=== PATIENT | female | born 1970 | race Caucasian/White ===

== ENCOUNTER 2024-10-17 10:02 | Outpatient (AMB) | payer OTHER, SELFPAY ==
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
[2024-10-17 10:31] VITALS: BP 100/60; PULSE 78; RESP 18; TEMP 36.9; O2SAT 97; BMI 32.8
== END 2024-10-17 12:12 | disposition home or self-care (01) ==
PROVIDERS: Visit Provider Internal Medicine
DX: M51.26 Other intervertebral disc displacement, lumbar region (principal); Z00.00 Encounter for general adult medical examination without abnormal findings; Z53.20 Procedure and treatment not carried out because of patient's decision for unspecified reasons; Z12.4 Encounter for screening for malignant neoplasm of cervix; R40.20 Unspecified coma

== ENCOUNTER 2024-10-17 10:02 | Outpatient (REF) | payer OTHER, SELFPAY ==
[2024-10-23 14:40] LABS: HPV Genotype 16 Negative (Negative); HPV Genotype 18 Negative (Negative); HPV High Risk Negative (Negative)
== END 2024-10-17 10:03 | disposition home or self-care (01) ==
LOC: HO.LNP 10:02
PROVIDERS: Visit Provider Internal Medicine
DX: Z00.00 Encounter for general adult medical examination without abnormal findings (principal); Z12.4 Encounter for screening for malignant neoplasm of cervix; M51.26 Other intervertebral disc displacement, lumbar region; R55 Syncope and collapse
CPT/HCPCS: 87626; 88175; 96127; 99386; 99459

== ENCOUNTER 2024-12-19 09:47 | Outpatient (REF) | payer OTHER, SELFPAY ==
[2024-12-19 13:28] LABS: MANUAL DIFF FLAG NO
[2024-12-19 13:43] LABS: Basophils Percent Auto 0.4 % (0-2); Eosinophils Absolute Auto 0.1 X10*3/uL (0.0-0.4); Eosinophils Percent Auto 1.1 % (0-4); Hematocrit 38.6 % (37.0-47.0); Hemoglobin 12.4 g/dl (12.0-16.0); Imm Gran Abs Auto 0.01 X10*3/uL (0.00-0.03); Imm Gran Pct Auto 0.1 % (0.0-0.4); Lymphocytes Absolute Auto 2.5 X10*3/uL (1.2-4.9); Lymphocytes Percent Auto 35.9 % (20-40); Mean Corpuscular HGB Conc 32.1 g/dl (31.0-35.0); Mean Corpuscular Hemoglobin 29.9 pg (27.0-33.0); Mean Platelet Volume 10.1 fL (9.4-12.3); Monocytes Absolute Auto 0.6 X10*3/uL (0.1-1.2); Neutrophils Absolute Auto 3.8 x10*3/uL (2.0-8.3); Neutrophils Percent Auto 54.5 % (45-73); Platelet Count 282 X10*3/uL (160-400); Red Blood Count 4.15 X10*6/uL (4.20-5.50)
[2024-12-19 13:46] LABS: Estimated Average Glucose 105 mg/dL; Hemoglobin A1C 111.0018 umol/L; Hemoglobin A1c % 5.3 % (<6.0); Total Hemoglobin (HGBA1C) 3199.4339 umol/L
[2024-12-19 13:54] LABS: Appearance Urine Clear; Color Urine Yellow; Glucose Urine UA Negative (Negative); Leukocyte Esterase Urine Negative (Negative); Nitrite Urine Negative (Negative); Specific Gravity - Urine <= 1.005 (1.005-1.025); Urine Blood Negative (Negative); Urine Ketones Negative (Negative); Urine Protein Negative (Neg-Trace)
[2024-12-19 13:56] LABS: Bacteria Urine None Seen (None Seen); Hyaline Casts Urine 0-2 /LPF (0-2); RBC Urine 0-2 /HPF (0-2); Squamous Epithelial Cell Urine 0-2 /HPF (0-2); WBC Urine 0-5 /HPF (0-5)
[2024-12-19 14:23] LABS: Alanine Aminotransferase 42 U/L (0-31); Albumin Level 4.2 g/dL (3.5-5.0); Alkaline Phosphatase 113 U/L (39-117); Anion Gap 11 (12-20); Aspartate Amino Transferase 29 U/L (5-31); Bilirubin Total 0.4 mg/dL (0.0-1.0); Blood Urea Nitrogen 15 mg/dL (9-16); Calcium 8.9 mg/dL (8.4-10.2); Carbon Dioxide 25 mmol/L (22-29); Chloride 111 mmol/L (96-108); Cholesterol 262 mg/dL (<200); Estimated Glomerular Filt Rate > 60; Glucose Fasting 89 mg/dL (60-99); HDL Cholesterol 52 mg/dL (>40); Iron 71 mcg/dL (30-160); LDL Cholesterol Calculated 179 mg/dL (<100); Percent Iron Saturation 24 % (15-50); Potassium 4.7 mmol/L (3.3-5.1); Sodium 142 mmol/L (135-145); TSH reflex Free T4 0.43 uIU/mL (0.32-4.0); Total Iron Binding Capacity 295 mcg/dL (228-428); Total Protein 6.8 g/dL (6.5-8.0); Triglycerides 157 mg/dL (<150); Unsaturated Iron Binding 224 ug/dL; Vitamin D 25-OH Total 21.5 ng/mL (>30)
[2024-12-19 14:41] LABS: Folate 12.3 ng/mL (> or = 4.0); Vitamin B12 285 pg/mL (200-900)
== END 2024-12-19 09:48 | disposition home or self-care (01) ==
LOC: HO.HMGCLDS 09:47
PROVIDERS: PCP Internal Medicine; Visit Provider Internal Medicine
DX: R87.619 Unspecified abnormal cytological findings in specimens from cervix uteri (principal); Z00.00 Encounter for general adult medical examination without abnormal findings; E78.5 Hyperlipidemia, unspecified; R73.9 Hyperglycemia, unspecified; M51.26 Other intervertebral disc displacement, lumbar region; E66.3 Overweight
CPT/HCPCS: 36415; 80053; 80061; 81001; 82306; 82607; 82746; 83036; 83540; 84443; 85025; 99212

== ENCOUNTER 2024-12-19 09:47 | Outpatient (AMB) | payer OTHER, SELFPAY ==
[2024-12-19 10:08] VITALS: BP 100/62; PULSE 74; RESP 18; TEMP 36.6; O2SAT 97; BMI 33.2
--- NOTE | 2024-12-19 10:08 | A.OFFPC_ITS ---
Vital Signs 12/19/24 10:08 Height 5 ft Weight 170 lb BMI 33.2 BP 100/62 Blood Pressure Location Rt brachial Position Sitting Respiration 18 Pulse 74 Pulse Source Pulse Oximeter Temp 97.9 F Temp Source Oral Pulse Oximetry (%) 97 Oxygen Delivery Method Room Air Intake Visit Reasons: 2m f/u Intake Note: Pt is here today for 2 months follow up visit. Allergies No Known Allergies Allergy (Verified 10/17/24 10:32) Medication List - Last Reconciled 12/19/24 by Roxann Govea MD No Known Home Meds Tobacco use date assessed: 12/19/24 Dental Screening Dental Screen Date: 10/17/24 HPI 2m f/u HPI Details Pt presents for f/u. She complains of frequent urination for 2 years and gaining weight since menopause. Pt has been in PT for neck pain and c/o chronic back pain and stiffness when starting to walk. PFSH Surgical History (Updated 10/17/24 @ 15:31 by Roxann Govea MD) Hx of plastic surgery Hx of appendectomy Family History (Updated 10/17/24 @ 10:36 by Alicia Le [facility]) Father Hypertension Mother Hypertension Social History (Updated 10/17/24 @ 15:33 by Roxann Govea MD) Household Members Other:: , 3 daughters (27, 18, 10) , stays home, from [facility] Housing: House Patient Tobacco Use Status: Never used Tobacco e-Cigarette/Vaping Use: Never Used service: No Current occupational status: unemployed Cognitive needs: No Hearing needs: No Vision needs: Yes Questionnaire Thrive Questionnaire Date Thrive assessed: 10/15/24 I am a: Patient What is your living situation today?: I have a steady place to live Within the past 12 months, did the food you bought not last and you didn't have the money to get more?: I choose not to answer this question Within the past 12 months, did you worry whether your food would run out before you got money to buy more?: I choose not to answer this question Do you have trouble paying for medicines?: I choose not to answer this question Do you have trouble getting transportation to medical appointments?: No Do you have trouble paying your heating and electricity bill?: I choose not to answer this question Do you have trouble taking care of your child, family member or friend?: No Do you have trouble with day-to-day activities such as bathing, preparing meals, shopping, managing finances, etc.?: I choose not to answer this question Are you currently unemployed and looking for a job?: Yes Are you interested in more education?: Yes Please select the resources that you would like help with: None Currently or been in a relationship where the following occur: I choose not to answer THRIVE Score: 0 RAINA-7 AMB Questionnaire RAINA-7 Date RAINA - 7 assessed: 10/17/24 Source: Developed by Drs. Neto Guillermo, Krista Aiken, Jimbo Medina and colleagues, with an educational vanessa from [employer]. Review of Systems Const All systems reviewed & are unremarkable except as noted in HPI and below Eyes Reports no additional complaints ENT Reports no additional complaints Card Reports no additional complaints Resp Reports no additional complaints GI Reports no additional complaints Reports no additional complaints Physical exam (Primary Care) Vital Signs: Last Vital Signs Temp 97.9 F 12/19/24 10:08 Pulse 74 12/19/24 10:08 Resp 18 12/19/24 10:08 BP 100/62 12/19/24 10:08 Pulse Ox 97 12/19/24 10:08 Oxygen Delivery Method Room Air 12/19/24 10:08 BMI result Body Mass Index 33.2 Tobacco/Smoking Status: Tobacco use Status Tobacco use date assessed 12/19/24 12/19/24 10:13 Patient Tobacco Use Status Never used Tobacco 12/19/24 10:09 e-Cigarette/Vaping Use Never Used 12/19/24 10:09 Thrive Assessment: Date of Thrive Assessment Date Thrive assessed 10/15/24 12/19/24 10:09 Currently or been in a relationship where the following occur: I choose not to answer Const General: no acute distress HENMT Head: Yes normal to inspection Ears: hearing grossly normal bilaterally Face and sinus: Yes normal facial exam Mouth: Normal oral and palatal mucosa present Eyes General: appearance normal, both eyes and all related structures Neck Neck: Yes no lymphadenopathy and Yes supple Resp Effort & Inspection: normal respiratory effort Auscultation: clear to auscultation bilaterally Cardio Rhythm: regular rhythm Heart sounds: S1 normal heart sound present and S2 normal heart sound present GI Inspection: Yes normal to inspection Palpation (GI): Soft to palpation Percussion: Yes normal to percussion Auscultation: normal bowel sounds Coding Level of Care Code Est Pt Level 4 (30973) Diagnoses Abnormal Pap smear of cervix R87.619 Herniated intervertebral disc of lumbar spine M51.26 Hyperlipidemia E78.5 Overweight E66.3 Assessment & Plan Assessment & Plan (1) Abnormal Pap smear of cervix: Comment: MARCE 1 referral Code(s): R87.619 - Unspecified abnormal cytological findings in specimens from cervix uteri Category: Medical Plan: refer to psychology tech, 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 (2) Herniated intervertebral disc of lumbar spine: Comment: Chronic lower back pain and sciatica Code(s): M51.26 - Other intervertebral disc displacement, lumbar region Category: Medical Plan: refer to PT (3) Hyperlipidemia: Comment: Diet Code(s): E78.5 - Hyperlipidemia, unspecified Category: Medical Plan: cont low cholesterol diet check lipid profile (4) Overweight: Code(s): E66.3 - Overweight Category: Medical Plan: check TSH, decrease caloric intake, increase exercise Orders: Orders PT Evaluation and Treatment Today M51.26 - Other intervertebral disc displacement, lumbar region Comprehensive [place]. Panel Fast Today E78.5 - Hyperlipidemia, unspecified, R73.9 - Hyperglycemia, unspecified, Z00.00 - Encounter for general adult medical examination without abnormal findings Complete Blood Count Auto Diff Today E78.5 - Hyperlipidemia, unspecified, R73.9 - Hyperglycemia, unspecified, Z00.00 - Encounter for general adult medical examination without abnormal findings IRON PROFILE Today E78.5 - Hyperlipidemia, unspecified, R73.9 - Hyperglycemia, unspecified, Z00.00 - Encounter for general adult medical examination without abnormal findings UA w Microscopic Today E78.5 - Hyperlipidemia, unspecified, R73.9 - Hyperglycemia, unspecified, Z00.00 - Encounter for general adult medical examination without abnormal findings TSH reflex Free T4 Today E78.5 - Hyperlipidemia, unspecified, R73.9 - Hyperglycemia, unspecified, Z00.00 - Encounter for general adult medical examination without abnormal findings Hemoglobin A1c Today E78.5 - Hyperlipidemia, unspecified, R73.9 - Hyperglycemia, unspecified, Z00.00 - Encounter for general adult medical examination without abnormal findings Vitamin B12 and Folate Today E78.5 - Hyperlipidemia, unspecified, R73.9 - Hyperglycemia, unspecified, Z00.00 - Encounter for general adult medical examination without abnormal findings Vitamin D 25-OH Total Today E78.5 - Hyperlipidemia, unspecified, R73.9 - Hyperglycemia, unspecified, Z00.00 - Encounter for general adult medical examination without abnormal findings Lipid Panel Today E78.5 - Hyperlipidemia, unspecified, R73.9 - Hyperglycemia, unspecified, Z00.00 - Encounter for general adult medical examination without abnormal findings Referrals GRANTS ANALYST Referral R87.619 - Unspecified abnormal cytological findings in specimens from cervix uteri
== END 2024-12-19 12:21 | disposition home or self-care (01) ==
LOC: HO.HMCC 09:47
PROVIDERS: PCP Internal Medicine; Visit Provider Internal Medicine
DX: R87.619 Unspecified abnormal cytological findings in specimens from cervix uteri (principal); M51.26 Other intervertebral disc displacement, lumbar region; E78.5 Hyperlipidemia, unspecified; E66.3 Overweight

== ENCOUNTER 2025-02-23 09:06 | Outpatient (AMB) | payer OTHER, SELFPAY ==
[2025-02-23 09:30] VITALS: BP 110/76; PULSE 77; RESP 18; TEMP 36.8; O2SAT 99; BMI 33.2
--- NOTE | 2025-02-23 09:30 | A.OFFPC_ITS ---
Vital Signs 02/23/25 09:30 Height 5 ft Weight 170 lb BMI 33.2 BP 110/76 Blood Pressure Location Lt brachial Position Sitting Respiration 18 Pulse 77 Pulse Source Pulse Oximeter Temp 98.2 F Temp Source Oral Pulse Oximetry (%) 99 Oxygen Delivery Method Room Air Intake Visit Reasons: HEMOROIDS Intake Note: Pt is here today for a sick visit. Pt c/o issues with hemorrhoids for couple months now. Allergies No Known Allergies Allergy (Verified 02/23/25 09:43) Medication List - Last Reconciled 02/23/25 by Roxann Govea MD No Known Home Meds Tobacco use date assessed: 02/23/25 Dental Screening Dental Screen Date: 10/17/24 HPI HEMOROIDS HPI Details Patient presents complaining of external hemorrhoids swelling and bleeding 2 weeks ago. Patient use [id number] hemorrhoid cream and his symptoms resolved. She reports chronic constipation but denies hematochezia melena. Patient reports intermittent right upper quadrant abdominal discomfort and flank pain on and off. Patient denies hematuria or dysuria. She has bilateral breast implants and would like to have breast ultrasound but refused to have a mammogram. Patient is planning to have breast implants removed in [place] in April. [facility] Medical History Abdominal pain Hemorrhoid Rectal bleed Hyperlipidemia Surgical History Hx of plastic surgery Hx of appendectomy Family History Father Hypertension Mother Hypertension Social History Household Members Other:: , 3 daughters (27, 18, 10) , stays home, from [facility] Housing: House Patient Tobacco Use Status: Never used Tobacco e-Cigarette/Vaping Use: Never Used service: No Current occupational status: unemployed Cognitive needs: No Hearing needs: No Vision needs: Yes Questionnaire Thrive Questionnaire Date Thrive assessed: 10/15/24 I am a: Patient What is your living situation today?: I have a steady place to live Within the past 12 months, did the food you bought not last and you didn't have the money to get more?: I choose not to answer this question Within the past 12 months, did you worry whether your food would run out before you got money to buy more?: I choose not to answer this question Do you have trouble paying for medicines?: I choose not to answer this question Do you have trouble getting transportation to medical appointments?: No Do you have trouble paying your heating and electricity bill?: I choose not to answer this question Do you have trouble taking care of your child, family member or friend?: No Do you have trouble with day-to-day activities such as bathing, preparing meals, shopping, managing finances, etc.?: I choose not to answer this question Are you currently unemployed and looking for a job?: Yes Are you interested in more education?: Yes Please select the resources that you would like help with: None Currently or been in a relationship where the following occur: I choose not to answer THRIVE Score: 0 RAINA-7 AMB Questionnaire RAINA-7 Date RAINA - 7 assessed: 10/17/24 Source: Developed by Drs. Neto Guillermo, Krista Aiken, Jimbo Medina and colleagues, with an educational vanessa from [employer]. Review of Systems Const All systems reviewed & are unremarkable except as noted in HPI and below Card Reports no additional complaints Resp Reports no additional complaints GI Reports no additional complaints Reports no additional complaints Physical exam (Primary Care) Vital Signs: Last Vital Signs Temp 98.2 F 02/23/25 09:30 Pulse 77 02/23/25 09:30 Resp 18 02/23/25 09:30 BP 110/76 02/23/25 09:30 Pulse Ox 99 02/23/25 09:30 Oxygen Delivery Method Room Air 02/23/25 09:30 BMI result Body Mass Index 33.2 Tobacco/Smoking Status: Tobacco use Status Tobacco use date assessed 02/23/25 02/23/25 09:45 Patient Tobacco Use Status Never used Tobacco 02/23/25 09:30 e-Cigarette/Vaping Use Never Used 02/23/25 09:30 Thrive Assessment: Date of Thrive Assessment Date Thrive assessed 10/15/24 02/23/25 09:30 Currently or been in a relationship where the following occur: I choose not to answer Const General: no acute distress HENMT Face and sinus: Yes normal facial exam Eyes General: appearance normal, both eyes and all related structures Resp Effort & Inspection: normal respiratory effort Auscultation: clear to auscultation bilaterally Cardio Rhythm: regular rhythm Heart sounds: S1 normal heart sound present and S2 normal heart sound present GI Inspection: Yes normal to inspection Palpation (GI): Soft to palpation Percussion: Yes normal to percussion Auscultation: normal bowel sounds Coding Level of Care Code Est Pt Level 4 (55521) Diagnoses Rectal bleed K62.5 Hemorrhoid K64.9 Breast implant in situ Abdominal pain R10.9 Assessment & Plan Assessment & Plan (1) Rectal bleed: Code(s): K62.5 - Hemorrhage of anus and rectum Category: Medical Plan: refer for colonoscopy (2) Hemorrhoid: Code(s): K64.9 - Unspecified hemorrhoids Category: Medical Plan: Try Proctocream, for chronic constipation patient was advised to increase fiber and fluids intake, try Metamucil and MiraLax as needed (3) Breast implant in situ: Code(s): - Breast implant status Category: Medical Plan: Obtain bilateral breast ultrasound, patient declined mammogram. (4) Abdominal pain: Code(s): R10.9 - Unspecified abdominal pain Category: Medical Plan: Obtain abdominal ultrasound to evaluate for cholelithiasis and nephrolithiasis Orders: Orders US breast RT complete Today - Breast implant status HIV Ab/Ag Today R05.9 - Cough, unspecified, R10.9 - Unspecified abdominal pain US breast LT complete Today - Breast implant status XR chest 1V Today R05.9 - Cough, unspecified Hepatitis B,C Profile Today R05.9 - Cough, unspecified, R10.9 - Unspecified abdominal pain US abdomen complete Today R10.9 - Unspecified abdominal pain Referrals Gastroenterology Referral K62.5 - Hemorrhage of anus and rectum, K64.9 - Unspecified hemorrhoids
== END 2025-02-23 11:41 | disposition home or self-care (01) ==
LOC: HO.HMCC 09:07
PROVIDERS: PCP Internal Medicine; Visit Provider Internal Medicine
DX: K62.5 Hemorrhage of anus and rectum (principal); K64.9 Unspecified hemorrhoids; Z98.82 Breast implant status; R10.9 Unspecified abdominal pain

== ENCOUNTER 2025-02-23 09:06 | Outpatient (REF) | payer OTHER, SELFPAY ==
--- NOTE | ~2025-02-23 | XR_ITS ---
EXAMINATION: XR CHEST CLINICAL INFORMATION: R05.9 - Cough, unspecified COMPARISON: None available. TECHNIQUE: Frontal view of the chest was obtained. FINDINGS: No consolidation, pleural fissure pneumothorax. Cardiomediastinal silhouette size is normal. Small marginal osteophyte formation and syndesmophyte formation lower thoracic spine. XR/XR chest 1V IMPRESSION: No acute airspace disease. Electronically signed by: Karel Weller MD 02/23/2025 11:08 AM EDT
[2025-02-23 13:59] LABS: HBc Num1 9.04 S/CO (0.00-0.79); HBsAGNum1 0.31 S/CO (0.00-0.99); HIV AB/AG Nonreactive (Nonreactive); HIV Num 1 0.05 S/CO (0.00-0.99); Hepatitis B Surface Antigen Negative (Negative); ~HepC Num1 0.07 S/CO (0.00-0.79); ~Hepatitis B Surface Antibody NONREACTIVE (Nonreactive); ~Hepatitis C Antibody Nonreactive (Nonreactive)
[2025-02-23 15:05] LABS: HBc Num3 8.86 S/CO; Hepatitis B Core Antibody Reactive (Nonreactive)
[2025-02-24 09:47] LABS: Hepatitis B Core Antibody IgM NON-REACTIVE (NON-REACTIVE)
== END 2025-02-23 09:07 | disposition home or self-care (01) ==
LOC: HO.HMGCX 09:06
PROVIDERS: PCP Internal Medicine; Visit Provider Internal Medicine
DX: K62.5 Hemorrhage of anus and rectum (principal); K64.9 Unspecified hemorrhoids; R10.9 Unspecified abdominal pain; R05.9 Cough, unspecified; Z98.82 Breast implant status
CPT/HCPCS: 36415; 71045; 86704; 86705; 86706; 86803; 87340; 87389; 99212

== ENCOUNTER → 2025-02-23 10:30 | Outpatient (BNV) | payer OTHER, SELFPAY | PROVIDERS: PCP Internal Medicine; Visit Provider Radiology Diagnostic Radiology | DX: R05.9 Cough, unspecified (principal) | CPT/HCPCS: 71045 ==

== ENCOUNTER 2025-07-04 07:31 | Day surgery (SDC) | payer OTHER, SELFPAY ==
--- OUTSIDE RECORDS SUMMARY | 2025-06-27 10:20 | XMS_ITS ---
Author Organization [facility] Address [address] [place] [address] Care Team Providers Care Harness Puller Name Role Phone Roxann Govea MD Primary Care Provider Neto Azevedo Unavailable [phone] Allergies No Known Allergies REASON FOR VISIT patient presents today for HEMORRHOIDS, HEMORRHAGE OF ANUS AND RECTUM Immunizations Vaccine Route Administration Date Status Comme nts Influenza Unknown 06/27/2025 Refused Social History Tobacco Use: Social History Observation Description Date Details (start date - stop date) Never Smoker NA - NA Tobacco Control (Standard) Question Answer Notes Tobacco use: Nonsmoker AUDIT-C (Standard) Question Answer Notes Did you have a drink contain ing alcohol in the past year? Yes How often did you have a dri nk containing alcohol in the past year? 2 to 4 times a month (2 points) How many drinks did you have on a typical day when you were drinking in the past year? 1 or 2 drinks (0 point) How often did you have six o r more drinks on one occasion in the past year? Less than monthly (1 point) Points 3 Interpretation Positive Section Notes: From [place] in 2012 Nonsmoker; no sig alcohol Problems Problem Type SNOMED Code ICD Code Onset Dates Problem Status W/U Status Risk Notes Problem Rectal bleeding (89192844) Rectal bleeding (K62.5) Active confirmed Problem Colon cancer screening (802268892) Colon cancer screening (Z12.11) Active confirmed Problem Fatty liver (081535032) Fatty liver (K76.0) Active confirmed Problem Elevated liver enzymes level (917294028) Elevated liver function tests (R94.5) Active confirmed Vital Signs Temperature 97.8 degrees Fahrenheit 06/27/20 25 Blood pressure systolic 001 mm Hg 06/27/20 25 Blood pressure diastolic 01 mm Hg 025 Height 60 in 06/27/2025 Weight 177.4 lbs 06/27/2025 BMI 34.64 kg/m2 06/27/2025 Procedures Procedure Date Ordered Date Performed Result Body Sit e COLONOSCOPY 06/27/2025 N/A Encounters Encounter Location Date Provider Diagnosis [facility] [address] [place] [address] 06/27/2025 Neto Soares Rectal bleeding K62.5 ; Colon cancer screening Z12.11 ; Fatty liver K76.0 and Elevated liver function tests R94.5 Assessments Encounter Date Diagnosis (ICD Code) Assessment Notes Treatment Notes Treatment Clinical Notes Section Notes 06/27/2025 Rectal bleeding (ICD-10 - K62.5) Overall, Vaughn appears quite well. We did discuss her history of some rectal bleeding over the summer and we reviewed that this sounds quite consistent with some perianal source such as a hemorrhoid due to her straining and constipation. Those symptoms resolved quickly and have not recurred. I do not think it represents anything worrisome such as neoplasm or significant polyps. I did advise her to certainly keep up with her daily lemon water use and stay with a healthy high-fiber diet so as to prevent constipation and straining with bowel movements.. I did recommend a colonoscopy primarily for screening purposes as she has never had one and she is now 55 years old. We did review the rationale for this in regard to colon cancer prevention. Full consent has been obtained from her for this, including risks of bleeding and perforation. The procedure will be done with monitored anesthesia care. In regard to the fatty liver we did review that today. The minimally elevated LFTs are not of any significant concern and I would not recommend any other testing to be done at this time. However we did review that she needs to certainly try to eat healthy, lose weight, and discuss her elevated cholesterol level with you to see if she might need medical therapy for that so as to eliminate that risk in regard to fatty liver. Vaughn was very comfortable with this plan. Thank you again for allowing me to participate in Vaughn's care. I shall continue to keep you advised of her progress. 06/27/2025 Colon cancer screening (ICD-10 - Z12.11) Overall, Vaughn appears quite well. We did discuss her history of some rectal bleeding over the summer and we reviewed that this sounds quite consistent with some perianal source such as a hemorrhoid due to her straining and constipation. Those symptoms resolved quickly and have not recurred. I do not think it represents anything worrisome such as neoplasm or significant polyps. I did advise her to certainly keep up with her daily lemon water use and stay with a healthy high-fiber diet so as to prevent constipation and straining with bowel movements.. I did recommend a colonoscopy primarily for screening purposes as she has never had one and she is now 55 years old. We did review the rationale for this in regard to colon cancer prevention. Full consent has been obtained from her for this, including risks of bleeding and perforation. The procedure will be done with monitored anesthesia care. In regard to the fatty liver we did review that today. The minimally elevated LFTs are not of any significant concern and I would not recommend any other testing to be done at this time. However we did review that she needs to certainly try to eat healthy, lose weight, and discuss her elevated cholesterol level with you to see if she might need medical therapy for that so as to eliminate that risk in regard to fatty liver. Vaughn was very comfortable with this plan. Thank you again for allowing me to participate in Vaughn's care. I shall continue to keep you advised of her progress. 06/27/2025 Fatty liver (ICD-10 - K76.0) Try to lose weight, eat healthy, and speak with Dr. Govea about your elevated cholesterol Overall, Vaughn appears quite well. We did discuss her history of some rectal bleeding over the summer and we reviewed that this sounds quite consistent with some perianal source such as a hemorrhoid due to her straining and constipation. Those symptoms resolved quickly and have not recurred. I do not think it represents anything worrisome such as neoplasm or significant polyps. I did advise her to certainly keep up with her daily lemon water use and stay with a healthy high-fiber diet so as to prevent constipation and straining with bowel movements.. I did recommend a colonoscopy primarily for screening purposes as she has never had one and she is now 55 years old. We did review the rationale for this in regard to colon cancer prevention. Full consent has been obtained from her for this, including risks of bleeding and perforation. The procedure will be done with monitored anesthesia care. In regard to the fatty liver we did review that today. The minimally elevated LFTs are not of any significant concern and I would not recommend any other testing to be done at this time. However we did review that she needs to certainly try to eat healthy, lose weight, and discuss her elevated cholesterol level with you to see if she might need medical therapy for that so as to eliminate that risk in regard to fatty liver. Vaughn was very comfortable with this plan. Thank you again for allowing me to participate in Vaughn's care. I shall continue to keep you advised of her progress. 06/27/2025 Elevated liver function tests (ICD-10 - R94.5) Overall, Vaughn appears quite well. We did discuss her history of some rectal bleeding over the summer and we reviewed that this sounds quite consistent with some perianal source such as a hemorrhoid due to her straining and constipation. Those symptoms resolved quickly and have not recurred. I do not think it represents anything worrisome such as neoplasm or significant polyps. I did advise her to certainly keep up with her daily lemon water use and stay with a healthy high-fiber diet so as to prevent constipation and straining with bowel movements.. I did recommend a colonoscopy primarily for screening purposes as she has never had one and she is now 55 years old. We did review the rationale for this in regard to colon cancer prevention. Full consent has been obtained from her for this, including risks of bleeding and perforation. The procedure will be done with monitored anesthesia care. In regard to the fatty liver we did review that today. The minimally elevated LFTs are not of any significant concern and I would not recommend any other testing to be done at this time. However we did review that she needs to certainly try to eat healthy, lose weight, and discuss her elevated cholesterol level with you to see if she might need medical therapy for that so as to eliminate that risk in regard to fatty liver. Vaughn was very comfortable with this plan. Thank you again for allowing me to participate in Vaughn's care. I shall continue to keep you advised of her progress. Plan Of Treatment Treatment Notes Assessment Notes Fatty liver Try to lose weight, eat healthy, and speak with Dr. Cichon about your elevated cholesterol Pending Test Test Name Order Date COLONOSCOPY 06/27/2025 Next Appt Details Follow Up: prn, Reason: Provider Name:Neto Owen Fany , 07/04/2025 11:40:00 AM, [address] [place] [address] , [place], [place], [phone], Progress Notes * VAUGHN LEBLANCDOB:[birth year] (55 yo F)Acc No.[id number]:06/27/2025 Progress Notes Patient: VAUGHN PEÑA Provider: Barber Soares MD :1970 A ge:55 Y S ex:Female Date:06/27/2025 Address:[address] [place], [place] [id number] Pcp:Roxann Govea MD Subjective: * Chief Complaints: * 1 . patient presents today for HEMORRHOIDS, HEMORRHAGE OF ANUS AND RECTUM. * HPI: i ncontinence: I saw Vaughn in consultation today in regard to further evaluation of her reported rectal bleeding, fatty liver, and discussion of colorectal cancer screening. As you know, Vaughn is a generally healthy 55-year-old female who presently feels well. She does describe a history of some constipation with straining during a bowel movement. She describes several episodes over this past summer of rectal bleeding with bowel movements and straining. She did have some discomfort during those times. After her constipation resolved with the use of daily lemon water she has had no further signs of bleeding after that 1 week. She reports that presently her bowel movements are not problematic and she has not noticed any further hematochezia or melena. She has never had a colonoscopy. She denies any known family history of colorectal cancer. She enjoys a good appetite. She denies any significant heartburn or dysphagia. She denies any abdominal pain, jaundice, nor any unintentional weight loss. She does advise me that she was told of fatty liver . She describes a previous ultrasound sometime last year. But her most recent laboratories from November revealed a normal CBC with platelet count, normal chemistries and renal function, hemoglobin A1c of only 5.3, iron of 71 with an iron saturation of 24%, a normal liver profile except for an ALT of 42, cholesterol of 262 with LDL of 179, triglycerides 157, and negative hepatitis B and C studies. She does not use any significant amounts of alcohol. She denies any known family history of liver disease. She has never had a history of hepatitis in herself. * Medical History: D enies [place],DM,CVA,Lung disease,renal disease, Fatty liver. * Surgical History: A ppendectomy . * Family History: no family hx of colon cancer. * Social History: T obacco Use: T obacco Control (Standard) T obacco use: N onsmoker. M iscellaneous: M arital status: . Occupation: unemployed. D rug/Alcohol: A CHENCHO-C (Standard) D id you have a drink containing alcohol in the past year? Y es,?How often did you have a drink containing alcohol in the past year? 2 to 4 times a month (2 points), H ow many drinks did you have on a typical day when you were drinking in the past year? 1 or 2 drinks (0 point), H ow often did you have six or more drinks on one occasion in the past year? L ess than monthly (1 point), P oints 3 , I nterpretation P ositive. F rom [place] in 2011 Nonsmoker; no sig alcohol. * Medications: N one * Allergies: N .K.D.A. Objective: * Vitals: W t: 177.4 lbs, Ht: 60 in, BMI:34.64Index, BP: 001/01 mm Hg, Temp: 97.8, Ht-cm: 152.4, Wt-k.47. Assessment: * Assessment: 1. R ectal bleeding - K62.5 (Primary) 2 . C olon cancer screening - Z12.11? 3. F atty liver - K76.0 4 . E levated liver function tests - R94.5 Overall, Vaughn appears qu ite well. We did discuss her history of some rectal bleeding over the summer and we reviewed that this sounds quite consistent with some perianal source such as a hemorrhoid due to her straining and constipation. Those symptoms resolved quickly and have not recurred. I do not think it represents anything worrisome such as neoplasm or significant polyps. I did advise her to certainly keep up with her daily lemon water use and stay with a healthy high- fiber diet so as to prevent constipation and straining with bowel movements.. I did recommend a colonoscopy primarily for screening purposes as she has never had one and she is now 55 years old. We did review the rationale for this in regard to colon cancer prevention. Full consent has been obtained from her for this, including risks of bleeding and perforation. The procedure will be done with monitored anesthesia care. In regard to the fatty liver we did review that today. The minimally elevated LFTs are not of any significant concern and I would not recommend any other testing to be done at this time. However we did review that she needs to certainly try to eat healthy, lose weight, and discuss her elevated cholesterol level with you to see if she might need medical therapy for that so as to eliminate that risk in regard to fatty liver. Vaughn was very comfortable with this plan. Thank you again for allowing me to participate in Vaughn's care. I shall continue to keep you advised of her progress. Plan: * Treatment: 2.?Fatty liver? Notes: Try to lose weight, eat healthy, and speak with Dr. Govea about your elevated cholesterol ? * Immunizations: Influenza (Not administered - Refused: Patient decision) * Procedure Codes: 4 5378 DIAGNOSTIC COLONOSCOPY * Preventive Medicine: Counseling: C are goal follow-up plan: A camila Normal BMI Follow-up D ietary management education, guidance, and counseling, B TN management provided Y es. * Follow Up: p rn * * The named appointment provid er may or may not be the originator of this progress note, and it is not deemed complete until electronically signed by the appointment provider. Sign off status: Pending * Provider: Barber Soares MD Date: Generated for Chilango cason/Nenita/Melissaitting on: 02:11 PM EDT History and Physical Notes * HPI (History of Present Illness) Category Sub-Category Detail Notes Category Not es incontinence I saw Vaughn in consultation today in regard to further evaluation of her reported rectal bleeding, fatty liver, and discussion of colorectal cancer screening. As you know, Vaughn is a generally healthy 55-year-old female who presently feels well. She does describe a history of some constipation with straining during a bowel movement. She describes several episodes over this past summer of rectal bleeding with bowel movements and straining. She did have some discomfort during those times. After her constipation resolved with the use of daily lemon water she has had no further signs of bleeding after that 1 week. She reports that presently her bowel movements are not problematic and she has not noticed any further hematochezia or melena. She has never had a colonoscopy. She denies any known family history of colorectal cancer. She enjoys a good appetite. She denies any significant heartburn or dysphagia. She denies any abdominal pain, jaundice, nor any unintentional weight loss. She does advise me that she was told of fatty liver . She describes a previous ultrasound sometime last year. But her most recent laboratories from November revealed a normal CBC with platelet count, normal chemistries and renal function, hemoglobin A1c of only 5.3, iron of 71 with an iron saturation of 24%, a normal liver profile except for an ALT of 42, cholesterol of 262 with LDL of 179, triglycerides 157, and negative hepatitis B and C studies. She does not use any significant amounts of alcohol. She denies any known family history of liver disease. She has never had a history of hepatitis in herself.
--- OUTSIDE RECORDS SUMMARY | 2025-06-28 14:11 | XMS_ITS | Patient Health Record ---
Author Organization [facility] Address [address] [place] [address] Care Team Providers Care Application Support Administrator Name Role Phone Roxann Govea MD Primary Care Provider Neto Azevedo Unavailable [phone] Allergies No Known Allergies Reason For Referral No Information Immunizations Vaccine Route Administration Date Status Comme [...] Points 3 Interpretation Positive Section Notes: From [place] in 2011 Nonsmoker; no sig alcohol Problems Problem Type SNOMED Code ICD Code Onset Dates Problem Status W/U Status Risk Notes Problem Colon cancer screening (408327805) Colon cancer screening (Z12.11) Active confirmed Problem Rectal bleeding (24190832) Rectal bleeding (K62.5) Active confirmed Problem Fatty liver (699793470) Fatty liver (K76.0) Active confirmed Problem Elevated liver enzymes level (682183039) Elevated liver function tests (R94.5) Active confirmed Vital Signs Temperature 97.8 degrees Fahrenheit 06/27/2025 Blood pressure diastolic 01 mm Hg 06/27/2025 Height 60 in 06/27/2025 Blood pressure systolic 001 mm Hg 06/27/2025 Weight 177.4 lbs 06/27/2025 BMI 34.64 kg/m2 06/27/2025 Procedures Procedure Date Ordered Date Performed Result Body Sit e COLONOSCOPY 06/27/2025 N/A Encounters Encounter Location Date Provider Diagnosis [facility] [address] [place] [address] 06/27/2025 Neto Fany Rectal bleeding K62.5 ; Colon cancer screening Z12.11 ; Fatty liver K76.0 and Elevated liver function tests R94.5 [facility] [address] [place] [address] 06/27/2025 Neto Soares Assessments Encounter Date Diagnosis (ICD Code) Assessment Notes Treatment Notes Treatment Clinical Notes Section Notes 06/27/2025 Colon cancer screening (ICD-10 - Z12.11) [...] keep you advised of her progress. 06/27/2025 Rectal bleeding (ICD-10 - K62.5) Overall, [...] advised of her progress. Plan Of Treatment Pending Test Test Name Order Date COLONOSCOPY 06/27/2025 Next Appt Details Provider Name:Neto Soares , 07/04/2025 11:40:00 AM, [address] [place] [address] , [place], [place], [phone], Insurance Providers Payer Name Payer Address Payer Phone Subscriber Number Group Number Insured Name Patient Relationship to Insured Coverage Start Date Coverage End Date [facility] [address] [address] [place], [place] [id number] VAUGHN LEBLANC Self - patient is the insured Medical (General) History Medical History History ICD Code Denies [place],DM,CVA,Lung disease,renal dise ase Fatty liver Surgical History Surgery Date(Month/Year) Appendectomy
[2025-07-02 12:58] VITALS: BMI 34.6
--- NOTE | 2025-07-02 13:23 | HO.ANESPROP2 ---
Documented by User: Eloisa Wilson NP 07/02/25 13:24 HPI - Anesthesia Eval Consult details Narrative: 55yo F for Colonoscopy PMFSH Active Problems Active Problems: All Active Problems Glaucoma (Acute) Cough (Acute) Breast implant in situ (Acute) Vitamin D deficiency (Acute) Overweight (Acute) Hyperglycemia (Acute) Abnormal Pap smear of cervix (Acute) Cervical cancer screening (Acute) Mammogram declined (Acute) Colonoscopy refused (Acute) Perimenopausal vasomotor symptoms (Acute) Annual physical exam (Acute) LOC (loss of consciousness) (Acute) Herniated intervertebral disc of lumbar spine (Acute) Abdominal pain (Acute) Hemorrhoid (Acute) Rectal bleed (Acute) Past Medical History Medical History Fatty liver Abdominal pain Hemorrhoid Rectal bleed Hyperlipidemia Family History Family History Father Hypertension Mother Hypertension Surgical History Surgical History Hx of plastic surgery Hx of appendectomy Social History Social History Household Members Other:: , 3 daughters (27, 18, 10) , stays home, from [facility] Housing: House Patient Tobacco Use Status: Never used Tobacco e-Cigarette/Vaping Use: Never Used Use of substances other than those prescribed or required for medical reasons: No Are you DNR?: No Advance Directives: No Advance Directives Information Provided: Yes service: No Current occupational status: unemployed Cognitive needs: No Hearing needs: No Vision needs: Yes Meds Allergies Allergy/AdvReac Type Severity Reaction Status Date / Time No Known Allergies Allergy Verified 07/04/25 08:08 Home Medications ?Medication ?Instructions ?Recorded ?Confirmed ?Last Taken ?Type No Known Home Meds 10/17/24 07/02/25 Unknown History Exam Height,Weight and Vital Signs: Height 5 ft Weight 80.286 kg Assessment and Plan Assessment Anesthesia Assessment: Chart Reviewed Documented by User: Josie Poe MD 07/04/25 08:13 PMFSH Past Medical History Medical History Fatty liver Abdominal pain Hemorrhoid Rectal bleed Hyperlipidemia Family History Family History Father Hypertension Mother Hypertension Surgical History Surgical History Hx of plastic surgery Hx of appendectomy History of Problems with Anesthesia: No Social History Social History Household Members Other:: , 3 daughters (27, 18, 10) , stays home, from [facility] Housing: House Patient Tobacco Use Status: Never used Tobacco e-Cigarette/Vaping Use: Never Used Use of substances other than those prescribed or required for medical reasons: No Are you DNR?: No Advance Directives: No Advance Directives Information Provided: Yes service: No Current occupational status: unemployed Cognitive needs: No Hearing needs: No Vision needs: Yes Meds Allergies Allergy/AdvReac Type Severity Reaction Status Date / Time No Known Allergies Allergy Verified 07/04/25 08:08 Home Medications ?Medication ?Instructions ?Recorded ?Confirmed ?Last Taken ?Type No Known Home Meds 10/17/24 07/02/25 Unknown History Exam Airway Mallampati Class: II TM Dist: >3cm Neck ROM: Full Loose/Missing/Broken Teeth: No Heart: RRR Lungs: CTA Assessment and Plan Assessment Anesthesia Assessment: Anesthesia Plan Discussed Final Anesthetic Review History of Problems with Anesthesia: No NPO: Yes ASA Class: II Final Preanesthetic Review: Meds/Allgs Chart Reviewed, Consent Obtained/Reviewed and Anes Risks/Benef Reviewed Patient Risk: Low Procedure Risk: Low Anesthetic Plan Anesthetic Plan: MAC: Disposition: Standard PACU
[2025-07-04 07:42] VITALS: BMI 32.8
[2025-07-04 07:55] VITALS: BP 105/69; PULSE 74; RESP 15; TEMP 36.9; O2SAT 95
[2025-07-04] MEDS: Lactated Ringers 1,000 ML 100 ML IVCONT (08:06)
[2025-07-04 09:37] VITALS: BP 106/68; PULSE 70; RESP 16; TEMP 36.6; O2SAT 96
--- NOTE | 2025-07-04 09:41 | PM.OP ---
Brief Operative Note Date of Service: 07/04/25 Pre-op diagnosis: Screening Post-op diagnosis: other (Polyps) Procedure: Colonoscopy to the cecum with bx/removal of polyps Surgeon: Neto Soares MD Was an Cementer Machine used for this Procedure?: No Estimated blood loss (mL): 2.0 Pathology: other (A. Ascending colon polyps) Condition: stable Disposition: PACU
[2025-07-04 09:52] VITALS: BP 100/62; PULSE 61; RESP 14; TEMP 36.6; O2SAT 98
--- NOTE | 2025-07-04 11:02 | OP_ITS ---
DATE OF SERVICE: 07/04/2025 SURGEON: Neto Soares MD INDICATIONS: The patient presents for evaluation of colorectal cancer screening. Full consent has been obtained from her for this, including risks of bleeding and perforation. PREOPERATIVE DIAGNOSIS: Colorectal cancer screening. POSTOPERATIVE DIAGNOSIS: PROCEDURE PERFORMED: ESTIMATED BLOOD LOSS: COMPLICATIONS: ANESTHESIA: Medication used, monitored anesthesia care. ASSISTANTS: SPECIMENS: POSTOPERATIVE DIAGNOSES: Colorectal cancer screening, small colon polyps, sigmoid diverticulosis, and internal hemorrhoids. PROCEDURES PERFORMED: Colonoscopy to the cecum with biopsy and removal of polyps. DESCRIPTION OF PROCEDURE: The patient was placed in the left lateral decubitus position. The digital rectal exam revealed some external hemorrhoids. The Olympus video pediatric colonoscope was entered into the rectum and advanced easily to the cecum. Once in the cecum, I did identify normal-appearing cecal pouch with appendiceal orifice, and a normal-appearing ileocecal valve. The entire cecum and ileocecal valve appeared normal. There was transillumination of light deep in the right lower quadrant. The scope was slowly withdrawn assessing all mucosal surfaces carefully. Preparation was excellent. In the ascending colon were 2 approximately 3 mm polyps, which were each biopsied and completely removed with a cold biopsy forceps. I did not visualize any other polyps, colitis, nor angiodysplasia. There was a mild amount of sigmoid diverticulosis. In the rectum, scope was retroflexed visualizing internal hemorrhoids, but no other pathology. The rectal mucosa appeared normal. Scope was straightened and withdrawn from the patient. She tolerated the procedure well and was returned to the recovery area in stable condition. IMPRESSION: 1. Small colon polyps. 2. Sigmoid diverticulosis. 3. Internal and external hemorrhoids. PLAN: The results of the pathology will be checked. If either of these are tubular adenomas then I would recommend a followup coloscopy in 5 years. If they are both hyperplastic, I would recommend a followup colonoscopy in 10 years. She will otherwise see me as needed. MD LUIS Collins/FANNY / [id number]
== END 2025-07-04 11:12 | disposition home or self-care (01) ==
PROVIDERS: PCP Internal Medicine; Visit Provider Internal Medicine
PROC: 0DJD8ZZ Inspection of Lower Intestinal Tract, Via Natural or Artificial Opening Endoscopic (ICD-10-PCS; CPT 45378; principal; 2025-07-04 08:30)
DX: Z12.11 Encounter for screening for malignant neoplasm of colon (principal); D12.2 Benign neoplasm of ascending colon; K57.30 Diverticulosis of large intestine without perforation or abscess without bleeding; K64.8 Other hemorrhoids; K59.00 Constipation, unspecified; K76.0 Fatty (change of) liver, not elsewhere classified
CPT/HCPCS: 45380; 88305; J2704